=== PATIENT | female | born 1945 | race Caucasian/White ===

== ENCOUNTER 2016-06-23 13:24 | Emergency (ER) | payer OTHER, MEDICARE ==
[~2016-06-23] VITALS: Ht 167.6 cm; Wt 77.7 kg
[~2016-06-23 13:24] MED LIST: ASPI-496 PO; CALC-471 PO; D3 PO; LEVO125T PO; PRAV20TA2 PO
[2016-06-23] MEDS ORDERED: ASPI-13 PO (14:56)
[2016-06-23] MEDS ORDERED: KETOROLAC 30 MG/1 ML ONE (15:16)
[2016-06-23 15:25] VITALS: BP 118/72
[2016-06-23] MEDS ORDERED: KETOROLAC 30 MG/1 ML IM ONE (15:30)
== END 2016-06-23 15:27 | disposition home or self-care (01) ==
LOC: ED 14:39
DX: M71.22 Synovial cyst of popliteal space [Baker], left knee (principal); M25.461 Effusion, right knee
CPT/HCPCS: 73564; 93971; 96372; 99284; J1885

== ENCOUNTER → 2016-09-18 | Outpatient (CLI) | payer MEDICARE ==
[~2016-09-18] MED LIST changes: +ASPI-13 PO; +OMNIPAQUE 350 MG/ML, 100ML BOTTLE ONE
== END | disposition home or self-care (01) ==
LOC: EDSTATUS 07-17 09:45 → CFH 14:12
PROVIDERS: ATTEND Family Medicine
DX: K57.30 Diverticulosis of large intestine without perforation or abscess without bleeding (principal); K76.89 Other specified diseases of liver
CPT/HCPCS: 74177; 82565; Q9967

== ENCOUNTER 2016-12-27 10:10 | Emergency (ER) | payer MEDICARE ==
[~2016-12-27] VITALS: Ht 162.6 cm; Wt 78.3 kg
[~2016-12-27 10:10] MED LIST changes: -OMNIPAQUE 350 MG/ML, 100ML BOTTLE ONE
[2016-12-27 10:14] VITALS: BP 124/81
[2016-12-27] MEDS ORDERED: SODIUM CHLORIDE FLUSH 10ML SYR IVF ONE (11:00)
[2016-12-27] MEDS ORDERED: SODIUM CHLORIDE 0.9% 1,000ML IVBOLUS ONE (11:00)
[2016-12-27 11:18] LABS: HEMATOCRIT 44.7 % (34.6-47.8); HEMOGLOBIN 15.1 g/dL (11.7-16.4); WHITE BLOOD COUNT 4.7 x10^3/uL (3.4-10)
[2016-12-27 11:31] LABS: BLOOD UREA NITROGEN 8 mg/dL (7-18)
[2016-12-27 11:36] LABS: IS PT STATUS REG ER OR PRE ER? YES
== END 2016-12-27 12:23 | disposition home or self-care (01) ==
LOC: ED 10:40
DX: J20.8 Acute bronchitis due to other specified organisms (principal); B96.89 Other specified bacterial agents as the cause of diseases classified elsewhere; E03.9 Hypothyroidism, unspecified; I48.91 Unspecified atrial fibrillation; Z79.82 Long term (current) use of aspirin; Z79.899 Other long term (current) drug therapy; Z86.718 Personal history of other venous thrombosis and embolism
CPT/HCPCS: 36415; 71020; 80048; 82040; 83605; 83880; 84484; 85025; 99285

== ENCOUNTER → 2017-10-22 | Outpatient (CLI) | payer MEDICARE | END | disposition home or self-care (01) | LOC: CFH 09:25 | PROVIDERS: ATTEND Family Medicine | DX: M85.88 Other specified disorders of bone density and structure, other site (principal) | CPT/HCPCS: 77080 ==